=== PATIENT | female | born 1945 | race Caucasian/White ===

== ENCOUNTER → 2017-11-28 | Outpatient (CLI) | payer MEDICARE, OTHER ==
[~2017-11-28] MED LIST: ALEVE220 MG PO; AMLODIPINE-BEN1 EACH PO; AZITHROMYCIN 2250 MG PO; CALCIUM CITRAT1 EAC1 PO; CEFUROXIME500 MG PO; COPAXONE20 MG/SYR SC; COPAXONE40 MG/1 ML SQ; FISH OIL 1,001000 M2 PO; JANUVIA100 MG PO; METFORMIN HCL500 MG PO; MUCINEX TA600 MG/TA1 PO; VENTOLIN HFA 1818 GM INH; VITAMIN D1000 UNI1 PO; ZOLOFT25 MG PO
== END ==
LOC: M.RAD 11:34
DX: R07.89 Other chest pain (principal)

== ENCOUNTER → 2018-05-08 | Outpatient (CLI) | payer MEDICARE, OTHER | LOC: M.RAD 13:04 | DX: Z12.31 Encounter for screening mammogram for malignant neoplasm of breast (principal); E11.9 Type 2 diabetes mellitus without complications; M19.90 Unspecified osteoarthritis, unspecified site; I10 Essential (primary) hypertension ==

== ENCOUNTER 2019-05-10 09:24 | Emergency (ER) | payer MEDICARE, OTHER ==
[~2019-05-10] VITALS: Ht 162.6 cm; Wt 79.4 kg
[2019-05-10] MEDS ORDERED: GLATOPA40 MG/1 ML SUBQ (10:01)
[2019-05-10 10:53] LABS: ABSOLUTE BASOPHILS 0.1 thou/uL (0.0-0.2); ABSOLUTE LYMPHOCYTES 1.1 thou/uL (0.8-5.3); ABSOLUTE MONOCYTES 0.9 thou/uL (0.0-1.2); ABSOLUTE NEUTROPHILS 8.2 thou/uL (1.6-8.1); BASOPHILS 0.6 %; EOSINOPHILS 0.1 %; HEMATOCRIT 46.8 % (37.0-47.0); HEMOGLOBIN 15.9 gm/dL (12.0-15.0); LYMPHOCYTES 10.9 %; MCH 29.2 pg (26.0-34.0); MCV 85.8 fL (80.0-100.0); MONOCYTES 8.4 %; MPV 8.4 fl. (7.2-11.1); NUCLEATED RBCS 0 /100WBC; PLATELET COUNT* 239 thou/uL (150-400); RBC 5.46 mil/uL (4.20-5.00); RDW-CV 13.1 % (10.5-14.5); WBC 10.3 thou/uL (4.0-11.0)
[2019-05-10 11:02] LABS: CALCIUM 9.7 mg/dL (8.5-10.1); CREATININE 1.4 mg/dL (0.6-1.3); POTASSIUM 4.1 mmol/L (3.5-5.1)
[2019-05-10 11:06] LABS: ALBUMIN 4.3 g/dL (3.4-5.0); TOTAL BILIRUBIN 0.5 mg/dL (<0.1-1.0)
[2019-05-10 11:30] LABS: URINE BILIRUBIN NEGATIVE (Negative); URINE BLOOD 1+ (Negative); URINE CLARITY CLEAR; URINE COLOR YELLOW; URINE GLUCOSE-RANDOM TRACE (Negative); URINE KETONES NEGATIVE (Negative); URINE LEUKOCYTES-REFLEX NEGATIVE (Negative); URINE NITRITE-REFLEX NEGATIVE (Negative); URINE PROTEIN 2+ (Negative); URINE SPECIFIC GRAVITY 1.015 (1.005-1.030); URINE UROBILINOGEN 0.2 E.U./dl (0.2-1.0)
[2019-05-10 11:39] LABS: BACTERIA-REFLEX 1-9 Few /HPF (None Seen); SQUAMOUS >10 Many /LPF (0-3); URINE RBC 0-2 Rare /HPF (0-2); URINE WBC-REFLEX 0-5 Rare /HPF (0-5)
[2019-05-10 11:40] LABS: CRYSTALS None Seen /LPF (None Seen); HYALINE CASTS 4-10 Moderate /LPF (None Seen); MUCUS 0-3 Light strn/LPF (None Seen)
[2019-05-10] MEDS ORDERED: ONDANSETRON HCL4 M2 PO (12:20)
[2019-05-10] MEDS ORDERED: NORCO 5-325 TA1 EAC1 PO (12:20)
[2019-05-10 13:17] VITALS: BP 166/88
--- NOTE | 2019-05-11 16:18 | EKG ---
[place] [address] ELECTROCARDIOGRAM REPORT Name: STACY CARRERA Room: [facility]#: [id number] Admission: 05/10/19 Attend Phys: Discharge: 05/10/19 Date of : 49 Report #: [id number] THIS REPORT FOR: //name// [facility] ED Test Date: 2019-05-10 Test Time: 10:28:16 Pat Name: STACY CARRERA Department: Room: Gender: F [employer]: ANGELA : 1945 Requested By: Anastasiya Mccormack Order Number: [id number] MD: Obie Servin Measurements Intervals [place] Rate: 91 P: 32 NE: 152 QRS: 8 QRSD: 86 T: 13 QT: 380 QTc: 468 Interpretive Statements Sinus rhythm Ventricular premature complex Possible inferior scar Probable left atrial enlargement Probable left ventricular hypertrophy Borderline T abnormalities, anterior leads Baseline wander in lead(s) V6 Compared to ECG 09/25/2016 12:06:36 Ventricular premature complex(es) now present Sinus tachycardia no longer present T-wave abnormality still present Electronically Signed On 05-11-2019 16:18:10 CDT by Obie Servin [email or web address] <ELECTRONICALLY SIGNED> By: Obie Servin MD, FACC 05/11/19 1618 1028 1028 Obie Servin MD, FAC /EPI
== END 2019-05-10 13:19 | disposition home or self-care (01) ==
LOC: M.ERS 09:24
PROVIDERS: Nurse Practitioner Family
DX: N20.1 Calculus of ureter (principal); R11.2 Nausea with vomiting, unspecified; E11.9 Type 2 diabetes mellitus without complications; I10 Essential (primary) hypertension; Z90.710 Acquired absence of both cervix and uterus

== ENCOUNTER → 2019-06-10 | Outpatient (CLI) | payer MEDICARE, OTHER ==
[~2019-06-10] MED LIST changes: +GLATOPA40 MG/1 ML SUBQ; +NORCO 5-325 TA1 EAC1 PO; +ONDANSETRON HCL4 M2 PO
== END ==
LOC: M.RAD 09:35
DX: Z12.31 Encounter for screening mammogram for malignant neoplasm of breast (principal)

== ENCOUNTER → 2019-06-17 | Outpatient (CLI) | payer MEDICARE, OTHER | LOC: M.RAD 09:28 | DX: N63.20 Unspecified lump in the left breast, unspecified quadrant (principal) ==

== ENCOUNTER → 2020-06-06 | Outpatient (CLI) | payer MEDICARE, OTHER | LOC: M.RAD 09:54 | PROVIDERS: ATTEND Family Medicine | DX: Z12.31 Encounter for screening mammogram for malignant neoplasm of breast (principal) ==

== ENCOUNTER → 2021-06-07 | Outpatient (CLI) | payer MEDICARE, OTHER ==
[2021-06-07 11:45] LABS: POTASSIUM 5.1 mmol/L (3.5-5.1)
== END ==
LOC: M.LAB 10:38 → M.RAD 10:38
PROVIDERS: ATTEND Family Medicine
DX: Z12.31 Encounter for screening mammogram for malignant neoplasm of breast (principal); E87.5 Hyperkalemia